=== PATIENT | female | born 1965 ===

== ENCOUNTER 2024-12-15 15:09 | Emergency (ER) | payer BC ==
[~2024-12-15] VITALS: Ht 162.6 cm; Wt 49.9 kg
--- NOTE | 2024-12-15 16:52 | HMCIMG ---
EXAM: CR right Tibia and fibula, 2 View. CLINICAL HISTORY: fall COMPARISON: None provided. FINDINGS: Soft tissue swelling at the mid to distal lateral right leg. Suspected subtle, minimally displaced fracture of the distal tip of the fibula. Joint spaces remain anatomically aligned. IMPRESSION: 1. Suspected minimally displaced fracture of the distal right fibular tip with lateral soft tissue swelling. /[place]
--- NOTE | 2024-12-15 16:53 | HMCIMG ---
EXAM: CR right ankle, 2 View. CLINICAL HISTORY: fall COMPARISON: None provided. FINDINGS: Soft tissue swelling at the mid to distal lateral right leg. Suspected subtle, minimally displaced fracture of the distal tip of the fibula. Joint spaces remain anatomically aligned. IMPRESSION: 1. Suspected minimally displaced fracture of the distal right fibular tip with lateral soft tissue swelling. /[place]
--- NOTE | 2024-12-15 16:55 | HMCIMG ---
EXAM: CR right foot, 3 View. CLINICAL HISTORY: fall COMPARISON: None provided. FINDINGS: Soft tissue swelling of the lateral malleolus. Suspected subtle, minimally displaced fracture of the distal tip of the fibula. Joint spaces remain anatomically aligned. IMPRESSION: 1. Suspected minimally displaced fracture of the distal right fibular tip with lateral soft tissue swelling. No additional displaced fractures appreciated. /[place]
--- NOTE | 2024-12-15 17:32 | ERN ---
ED Note History of Present Illness Stated Complaint: FOOT INJURY Chief Complaint: Ankle Problem Time Seen by MD: 15:36 Time Seen by Midlevel: 15:40 Dictation: 59-year-old female coming in with complaints of left ankle pain and swelling. Patient states she tripped and fell last night. Denies any head injury, denies any LOC. Allergies: Coded Allergies: No Known Drug Allergies (Unverified Allergy, Unknown, 12/15/24) Past Medical History Past Medical History: No Pertinent History Surgical History: None Review of System Dictation Constitutional: Negative for fever,chills, and weight loss Eyes: Negative for injury, pain,redness, and discharge ENT: Negative for injury,pain or swelling Cardiovascular: Negative for chest pain, palpitations, and edema Respiratory: Negative for shortness of breath, cough, and wheezing, Abdomen/GI: Negative for abdominal pain, nausea, vomiting, diarrhea, and const ipation Back: Negative for injury and pain : Negative for injury, bleeding and discharge MS/Extremity: Complaining of left ankle pain Skin: Negative for rash, and discoloration Neuro: Negative for headache, weakness, numbness, tingling, and seizure Psych: Negative for suicide ideation, homicidal ideation, and hallucinations Review of Systems: was completed Initial Vital Sign VS Vital Signs Date Time Temp Pulse Resp B/P (MAP) Pulse Ox O2 Delivery O2 Flow Rate FiO2 12/15/24 16:22 98.2 92 18 116/73 98 Room Air Physical Exam Dictation General: awake, alert, NAD Head/Face: Normocephalic, atraumatic Eyes: PERRL, EOMI, vision at baseline ENT: oral cavity clear, TMs clear, no signs of infection Neck: Trachea midline, supple, no nuchal rigidity Cardiovascular: RRR, normal S1/S2, No MRGs, no JVD Respiratory: CTAB, no respiratory distress, No rales or wheezes Abdomen: Soft, non-tender, non-distended, normal bowel sounds, no guarding or rebound. Skin: Warm, dry, normal turgor, no rash MS/Extremity: Pulses equal, no cyanosis, neurovascular intact, FROM, limited motion to the right ankle, swelling, and ecchymosis noted, pulses intact. Neuro: COAx4, GCS 15, strength 5/5, CN 2-12 intact, normal cerebellar exam, normal gait, Psych: Normal behavior, mood, and affect normal Results (Laboratory/Radiology) X-RAY Comment: [place] [id number] [id number] IMAGING REPORT Signed PATIENT: GENE CARPENTER MR#: [id number] : 1965 SEX: F AGE: 59 LOCATION: [facility] ORDER 56 STATUS: REG ER [facility] REPORT#: [id number] SERVICE 55 REASON: fall ORDERING PHYSICIAN: HUONG FITZGERALD NP PROCEDURE: TIBFIB RT - TIBIA/FIBULA 2VWS RT EXAM: CR right Tibia and fibula, 2 View. CLINICAL HISTORY: fall COMPARISON: None provided. FINDINGS: Soft tissue swelling at the mid to distal lateral right leg. Suspected subtle, minimally displaced fracture of the distal tip of the fibula. Joint spaces remain anatomically aligned. IMPRESSION: 1. Suspected minimally displaced fracture of the distal right fibular tip with lateral soft tissue swelling. /[place] DICTATED BY: MELONY BUNCH Jr., MD DATE: 12/15/241750 ELECTRONICALLY SIGNED BY: MELONY BUNCH Jr., MD DATE: 12/15/241750 [place] [address] [id number] IMAGING REPORT Signed PATIENT: GENE CARPENTER MR#: [id number] : 1965 SEX: F AGE: 59 LOCATION: [facility] ORDER 56 STATUS: REG ER [facility] REPORT#: [id number] SERVICE 57 REASON: fall ORDERING PHYSICIAN: HUONG FITZGERALD NP PROCEDURE: FT 3VW RT - FOOT COMP 3+VWS RT EXAM: CR right foot, 3 View. CLINICAL HISTORY: fall COMPARISON: None provided. FINDINGS: Soft tissue swelling of the lateral malleolus. Suspected subtle, minimally displaced fracture of the distal tip of the fibula. Joint spaces remain anatomically aligned. IMPRESSION: 1. Suspected minimally displaced fracture of the distal right fibular tip with lateral soft tissue swelling. No additional displaced fractures appreciated. /[place] DICTATED BY: MELONY BUNCH Jr., MD DATE: 12/15/241754 ELECTRONICALLY SIGNED BY: MELONY BUNCH Jr., MD DATE: 12/15/241754 ED Course ED Course Orders Procedure Category Date Status Time Ankle 2vws Rt RAD 12/15/24 Resulted 15:56 Foot Comp 3+Vws Rt RAD 12/15/24 Resulted 15:56 Tibia/Fibula 2vws Rt RAD 12/15/24 Resulted 15:56 Vital Signs Date Time Temp Pulse Resp B/P (MAP) Pulse Ox O2 Delivery O2 Flow Rate FiO2 12/15/24 16:22 98.2 92 18 116/73 98 Room Air Medical Decision Making MDM MDM: 59-year-old female coming in with complaints of left ankle pain and swelling. Patient states she tripped and fell last night. Denies any head injury, denies any LOC. x-ray of the ankle shows suspected minimally displaced fracture of the distal right fibular tip with lateral soft tissue swelling. Patient will be discharged to follow up outpatient with a ortho. Posterior short with strep splint we will be in place and crutches. Discussed signs and symptoms on when return back to the ER. Patient verbalized understanding, answered all questions. Differential diagnosis: Ankle sprain, ankle strain, ankle fracture, Rationale: Tests considered and ordered secondary to shared decision making include: Previous outside records reviewed: Old ER visits. Risk of complication and/or morbidity or mortality of patient management: None Medications-Per medication reconciliation Need for hospitalization: Patient does not meet criteria for hospitalization. Need for emergency major/minor surgery: No There are no social concerns with this patient. Prescription drug management Prescriptions will include symptomatic care Patient's prior external medical records from other ER visits were reviewed by me as indicated. Prior testing and results from previous visits were reviewed. Prior tests were taken into account with medical decision making and resource utilization, independent historian/historians were used to obtain complete medical history. I independently interpreted the test that were performed, results were reviewed by me and considered findings on radiology if ordered. Medical management and examination interpretation discussions were had by me with other qualified healthcare professionals as indicated for the patient's care. DX & DISP Disposition: Discharge Departure Impression: Primary Impression: Left malleolar fracture Condition: Stable Additional Instructions: You have a fracture in your fibula . Need to leave the splint in place. Left upper leg and maintain elevated to help with the swelling. If the splint is too tight you can always remove the bandages and readjust as needed. Follow up outpatient with the orthopedic surgeon that I have provided the name and information for. Take Tylenol or Motrin [id number] for pain control. Referrals: SELF,REFERRAL (PCP) XAVIER PAGAN MD Time of Disposition: 17:31 I have reviewed the case, and I agree with, Diagnosis and Plan HUONG FITZGERALD NP Dec 15, 2024 17:32
[2024-12-15] MEDS: HYDROcodone/APAP 5/325 1 TAB TABLET PO STA (17:48)
[2024-12-15 18:12] VITALS: BP 112/65; PULSE 95; RESP 18; TEMP 98; O2SAT 98
== END 2024-12-15 18:12 | disposition home or self-care (01) ==
LOC: EDH 15:09
DX: S82.62XA Displaced fracture of lateral malleolus of left fibula, initial encounter for closed fracture (principal); W18.39XA Other fall on same level, initial encounter; Y93.89 Activity, other specified; Y92.89 Other specified places as the place of occurrence of the external cause; Y99.8 Other external cause status
CPT/HCPCS: 29125; 29515; 73590; 73600; 73630; 99283